=== PATIENT | female | born 1965 | race Caucasian/White ===

== ENCOUNTER → 2019-04-30 13:30 | Outpatient (CLI) | payer MEDICAID, SELFPAY ==
--- NOTE | 2019-04-30 13:54 | CT_ITS ---
CT abdomen pelvis wo con CLINICAL INDICATION: ITS.REASON: RT FLANK PAIN ORDERING PHYSICIAN: Ryley Robins MD PATIENT AGE: 53 years COMPARISON: 09/15/2016 TECHNIQUE: Axial images obtained with sagittal and coronal reformats. All CT scans at the facility use one or more dose reduction, viz: automated exposure control, ma/kV adjustment per patient size (including targeted exams where dose is matched to indication, i.e. head), or iterative reconstruction technique. PROCEDURE: Oral Contrast: None IV Contrast: None . FINDINGS: The lung bases are clear aside from minimal atelectatic or fibrotic change in the right lower lobe posteriorly. There has been interval development of heterogeneous density within the posterior aspect of the right hepatic lobe, within the left lateral aspect of the left hepatic lobe and within the right hepatic lobe anteriorly near the falciform ligament. These areas show mostly mixed decreased attenuation measuring up to -30 Hounsfield units. There has been a prior cholecystectomy. No biliary ductal dilatation apparent. The spleen, adrenal glands, and pancreas have an unremarkable appearance. There is nonobstructing 3 mm stone in the lower pole the left kidney. No ureteral calculi. No hydronephrosis. There is prominence of the right renal pelvis is somewhat less apparent than when compared to 09/15/2016. No evidence of appendicitis or diverticulitis. There is diverticulosis of the sigmoid and descending and transverse colon. Post hysterectomy changes. No pelvic mass or abnormal fluid collection. No acute bony anomalies. IMPRESSION: 1. Heterogeneous fatty lesions of the liver. Suggest enhanced CT of the liver with three-phase imaging for further evaluation. The lesions may only represent heterogeneous areas of fatty infiltration. However, the pattern is somewhat atypical for this entity. The differential diagnosis would include hepatocellular carcinoma and metastatic disease. Follow-up is recommended. 2. Left nephrolithiasis. No obstructing renal calculi evident. 3. Diverticulosis of the colon
== END ==
PROVIDERS: PCP Internal Medicine Adolescent Medicine; Visit Provider Internal Medicine Adolescent Medicine
DX: N20.0 Calculus of kidney (principal)
CPT/HCPCS: 74176